=== PATIENT | male | born 1950 | race Caucasian/White ===

== ENCOUNTER 2020-08-31 11:54 | Observation (INO) | payer MEDICARE, SELFPAY ==
[2020-08-31] VITALS (18 sets, daily range): BP systolic 152–224; BP diastolic 71–118; PULSE 44–68; RESP 12–22; TEMP 35.8–36.5; O2SAT 95–100; BMI 27.5; BMI 26.6; BMI 26.7
[2020-08-31 12:05] LABS: Bedside Glucose 113 mg/dL (70-110)
--- NOTE | 2020-08-31 12:05 | RAD_ITS ---
STUDY: X-RAY CHEST REASON FOR EXAM: Male, 69 years old. NEURO DEFICIT, STROKE?, EPISODE OF SLURRED SPEECH AT 1130A TODAY TECHNIQUE: Single AP portable view of the chest. COMPARISON: None. FINDINGS: EKG electrodes are seen. The lungs are clear and expanded. There is no demonstrated pleural abnormality. Normal size heart. Normal mediastinum and cayetano. Normal visualized pulmonary arteries. There is atherosclerotic tortuosity of the aortic arch and descending thoracic aorta. There are degenerative changes of the visualized thoracic spine. Normal visualized ribs, clavicles, and shoulders. There is no demonstrated abnormality of the visualized soft tissue structures of the upper abdomen. RAD/Chest 1 View IMPRESSION: No acute abnormality is seen. Electronically Signed: Mikey Nova, at 13:07 EST , Service support ,
--- NOTE | 2020-08-31 12:05 | CT_ITS ---
STUDY: CT HEAD STROKE PROTOCOL W/O CONTRAST INJECTION REASON FOR EXAM: Male, 69 years old. SUSPECTED STROKE, SUDDEN ONSET OF SLURRED SPEECH, HERRERA, and quot;SEEING STARS and quot; RADIATION DOSAGE (If Supplied By Facility): CTDIvol = ( 44.99 ) mGy, DLP = ( 796.11 ) mGycm TECHNIQUE: Transaxial CT imaging of the brain was performed without administration of intravenous contrast material. Individualized dose optimization techniques were used for this CT. COMPARISON: No relevant priors. FINDINGS: Normal soft tissue structures. Normal calvarium. There is mild cerebral atrophy with widening of the extra-axial spaces and ventricular dilatation. There are areas of decreased attenuation within the white matter tracts of the supratentorial brain, consistent with microvascular disease changes. Normal basal ganglia and thalami. Normal brainstem. Normal cerebellum. There is no intracranial hemorrhage. There are no findings of an acute ischemic infarction. Atherosclerotic plaque formation of the cavernous portions of the internal carotid arteries bilaterally. Normal visualized paranasal sinuses. CT/STROKE Brain/Head without Cont IMPRESSION: Chronic involutional changes of the brain. N.B. : The above information has been verbally conveyed by Mikey Nova to Rao Brito on 08/31/2020 12:44:58 (ET). Electronically Signed: Mikey Nova, at 12:46 EST , Service support ,
--- NOTE | 2020-08-31 12:05 | EKG12_ITS ---
Test Reason : STROKE Blood Pressure : / mmHG Vent. Rate : 057 BPM Atrial Rate : 057 BPM P-R Int : 122 ms QRS Dur : 114 ms QT Int : 432 ms P-R-T Axes : 000 -56 025 degrees QTc Int : 420 ms Sinus bradycardia Left axis deviation Abnormal ECG Confirmed by RESHMA GUTIERREZ, STEFAN ([id number]), deputy editor in chief GALDINO CISNEROS ([id number]) on 09/02/2020 10:46:27 AM Referred By: DC Confirmed By:STEFAN JUSTICE MD
[2020-08-31 12:18] LABS: Absolute Lymphocyte Count 2.92 X10^3/uL (0.83-4.51); Absolute Neutrophil Count 3.4 X10^3/uL (2.0-7.7); Basophil# 0.08 X10^3/uL; Basophil% 1.1 % (0-1); Eosinophil# 0.23 X10^3/uL; Eosinophils% 3.2 % (0-5); Hematocrit 47.4 % (40-54); Lymphocyte # 2.92 X10^3/ul (4.0); Mean Corp Hgb Conc 35.9 g/dL (32-36); Mean Corpuscular Hgb 32.3 pg (27.0-32.0); Mean Corpuscular Volume 89.9 fL (80-94); Mean Platelet Vol. 9.5 fl (6.2-12.0); Monocyte# 0.51 X10^3/uL; Monocyte% 7.2 % (0-10); NRBC Flagged by Analyzer 0 % (0-5); Neutrophil # 3.36 X10^3/uL (2.7-7.7); Neutrophil % 47.1 % (47-70); Platelet Count 274 K/mm3 (150-450); RBC Distribution Width CV 13.2 % (11.6-14.6); RBC Distribution Width SD 42.5 fl (35.1-43.9); Red Blood Count 5.27 M/mm3 (4.6-6.2); White Blood Count 7.1 K/mm3 (4.4-11.0)
[2020-08-31 12:34] LABS: Partial Thromboplast Time 26.2 Seconds (24.1-36.2)
--- NOTE | 2020-08-31 12:34 | ED.RN ---
pt's symptoms had resolved prior to arrival to ED.
[2020-08-31 12:37] LABS: Anion Gap 3 (5-15); BUN 13 mg/dL (7-18); BUN/Creat Ratio 11.4 RATIO (10-20); Calcium,Total 9.6 mg/dL (8.5-10.1); Chloride 108 mmol/L (98-107); Creatinine, Serum 1.14 mg/dL (0.70-1.30); EST Glomerular Filtration Rate 67 mL/min (>60); Est Glom Filt Rate - Afr Amer 81 mL/min (>60); Glucose 102 mg/dL (74-106); Potassium 3.6 mmol/L (3.5-5.1); Sodium Level 139 mmol/L (136-145)
--- NOTE | 2020-08-31 13:57 | ED.VISSUMM ---
- ER Visit Summary Date of Service: 08/31/20 Chief Complaint: Slurred speech History of Present Illness: The patient is a 69 M who was at lunch today at around 1135. He had the sudden onset of slurred speech. His words were coming out abnormally. This was witnessed. It lasted about half an hour, and seems to have improved. He did not have any other symptoms like weakness, vision changes, or facial droop. He never had anything like this in the past. He says he has a history of borderline hypertension. Physical Examination: Blood pressure 224/115. Otherwise vitals normal. NIH stroke scale is 0. Heart is regular. Lungs are clear. Skin appears normal. Test Results: EKG shows sinus rhythm at a rate of 57. CBC, BMP, coags, troponin unremarkable. Chest x-ray and CT brain showed chronic changes, nothing acute. X-ray was reviewed by myself as well as the radiologist. Emergency Department Course and Treatment: Patient was seen shortly after arrival. Stroke team was not called as his symptoms have completely resolved. His NIH stroke scale is 0. His blood pressure is 224/115, and so he is not a candidate for TPA emergently. Patient had a TIA evaluation. Work-up was unremarkable. Blood pressure on reevaluation is 188/104. He will be treated with labetalol. Will contact the hospitalist for inpatient evaluation for TIA and blood pressure monitoring and treatment as needed. Treatment Plan: As above Disposition: Admission Impression: TIA, hypertension This note was generated with [employer] dictation software. It may contain incorrect words, spelling, and punctuation that were not noted in review of the chart prior to signing ED Disposition - Plan for ED Patient: Referrals: Pancho Davison MD [Primary Care Provider] -
[2020-08-31] MEDS: Labetalol (Compound) 20 MG/4 ML SYRINGE 5 MG IV (14:40)
--- NOTE | 2020-08-31 15:27 | PCM.HP.STD ---
Problem List (1) Slurred speech Status: Acute History of Present Illness Date of Admission: 08/31/20 Chief Complaint: slurred speech The patient is a 69 year old M was having lunch with his friends where he started immediately having slurred speech. Patient could understand what people are saying to him but he was having trouble speaking. Symptoms lasted a short period of time from minutes to maybe an hour and then resolve spontaneously. Patient denies ever having had symptoms such as this before. Friends are concerned and patient was brought to the hospital. In the emergency room, patient's work-up was unremarkable and has had no further neurologic deficits. While he was in the emergency room, his blood pressure was noted to be in the 190s. Patient has stated that he has been told he has had borderline hypertension but is not on treatment for it. [] Past Medical History Medical History: Medical History (Last Updated 08/31/20 @ 15:[address] Alexei Juarez, DO) HTN (hypertension) I10 Allergies No Known Allergies Allergy (Verified 08/31/20 11:54) Home Medications: Ambulatory Orders Medication Instructions Recorded No Known/Unobtainable [No Known 02/26/14 Home Medications] Smoking Status: Never smoker Tobacco Use: Non-smoker Alcohol: Rare Drugs: None - *Family History Maternal History Items: Stroke Review of Systems Constitutional: Denies: Chills, Fever, Weight Change Eyes: Reports: - - Saw some spots in his visual field today. Patient has previously seen starch mangle tender in was told that when he had this before that it was not anything of concern.. Denies: Blurred vision, Double vision HEENT: Reports: Difficulty Hearing, Difficulty Swallowing Cardiovascular: Reports: Edema, Light Headedness Respiratory: Reports: Cough, Hemoptysis, Pleuritic Pain, Shortness of Breath Gastrointestinal: Reports: Abdominal Pain, Constipation, Diarrhea Genitourinary: Reports: Dysuria, Frequency, Hematuria Musculoskeletal: Reports: Arm Pain, Back Pain, Foot Pain, Hand Pain Skin: Reports: Dryness, Jaundice Neurological: Reports: Change in Speech. Denies: Balance problems, Blurred vision, Double vision Psychiatric: Denies: Anxiety, Depression Comment: All review of systems were negative except as mentioned above in the history of present illness and the other review of systems. VTE Information - Inpt Only VTE Present on Admission: No VTE Mechan Device Prophylaxis: None VTE Pharm Prophylaxis ordered?: No Reason prophylaxis not ordered:: Treatment Not Indicated Patient Problems: Active and Suspected Problems (Last Updated 08/31/20 @ 15:[address] Alexei Juarez, DO) Slurred speech (Acute) - Physical Exam Vitals/I&O's: Vital Signs Temp Pulse Resp BP Pulse Ox 35.8 C L 54 L 17 182/111 H 98 08/31/20 14:30 08/31/20 14:30 08/31/20 14:30 08/31/20 14:30 08/31/20 14:30 Oxygen Delivery Method Room Air Weight: 89.6 kg Body Mass Index (BMI) 27.5 Finger Stick Blood Glucose 113 General: Alert, Cooperative, No apparent distress HEENT: Atraumatic, PERRLA, Normocephalic Oral: Moist Mucosa, No Gingival or Mucosal Lesions/ Ulcerations Neck: No Nodes, Thyroid Normal Size and Texture Lungs: Clear to auscultation, Normal air movement, No rhonchi, No wheeze, No rales Cardiovascular: Regular rate, Regular Rhythm, Normal S1, Normal S2, No murmurs Abdomen: Bowel Sounds Present, Soft, Non Tender, Non-Distended, No Hepato-splenomegaly Extremities: No edema, No Calf Tenderness Skin: No rashes, No breakdown Musculoskeletal: No Tenderness to Palpation of Joints or Extremities, No Muscle Wasting Neurological: Cranial nerves II-XII grossly intact, Deep Tendon Reflexes 2+/4 and Symmetrical, Neuro grossly intact, Motor Exam 5/5 strength throughout Psych/Mental Status: Normal Affect, Appropriate Laboratory Results 08/31/20 12:01: POC Glucose 113 H 08/31/20 12:03: WBC 7.1, RBC 5.27, Hgb 17.0 H, Hct 47.4, MCV 89.9, MCH 32.3 H, MCHC 35.9, RDW Std Deviation 42.5, RDW Coeff of Gio 13.2, Plt Count 274, MPV 9.5, Immature Gran % (Auto) 0.400, Neut % (Auto) 47.1, Lymph % (Auto) 41.0, [place] % (Auto) 7.2, Eos % (Auto) 3.2, Baso % (Auto) 1.1 H, Absolute Neuts (auto) 3.4, Absolute Lymphs (auto) 2.92, Nucleated RBC % 0 12/21/20 12:03: PT 13.0, INR 1.0, APTT 26.2 08/31/20 12:03: Sodium 139, Potassium 3.6, Chloride 108 H, Carbon Dioxide 28.0, Anion Gap 3 L, BUN 13, Creatinine 1.14, Estim Creat Clear Calc 63.30, Est GFR (MDRD) Af Amer 81, Est GFR (MDRD) Non-Af 67, BUN/Creatinine Ratio 11.4, Glucose 102, Calcium 9.6, Troponin I < 0.015 Clinical Impression(s) from Imaging Studies Brain CT 08/31/20 12:05 IMPRESSION: Chronic involutional changes of the brain. N.B. : The above information has been verbally conveyed by Mikey Nova to Rao Brito on 08/31/2020 12:44:58 (ET). Electronically Signed: Mikey Nova, at 12:46 EST , Service support , ADDENDUM: 08/31/20 1253 IMPRESSION: Chronic involutional changes of the brain. N.B. : The above information has been verbally conveyed by Mikey Nova to Rao Brito on 08/31/2020 12:44:58 (ET). Electronically Signed: Mikey Nova, at 12:46 EST , Service support , Chest X-Ray 08/31/20 12:05 IMPRESSION: No acute abnormality is seen. Electronically Signed: Mikey Nova, at 13:07 EST , Service support , EKG reviewed and showed sinus bradycardia but no acute changes. Assessment/Plan All Active Problems (Last Updated 08/31/20 @ 15:[address] Alexei Juarez, DO) Slurred speech (Acute) 1. Suspected TIA: Had a transient expressive aphasia with slurred speech. Plan is to do stroke work-up with an MRI of the brain, MRA of the head neck, 2D echocardiogram check a fasting lipid profile Started on aspirin 2. Hypertensive urgency Patient has a known history of borderline hypertension. Blood pressures in the 190s systolic. This may be related with TIA. Would not aggressively treat at this time given the likelihood of acute TIA or stroke. 3. VTE prophylaxis: Not indicated as patient is observation status at this time. COVID-19 screening: Patient was eating with his friends today. Asked patient how frequently he does this and he said he does so quite often. Though the patient has no symptoms of COVID-19, he is certainly high risk given his encounters. Will check a rapid antigen and based on the results he will be placed either in the general medical population if negative or Covid unit if positive. And if positive would confirm that with a PCR. OBSV E&M: [id number] Initial observation care L3
--- NOTE | 2020-08-31 17:01 | MRI_ITS ---
HISTORY: sudden onset slurred speech today TECHNIQUE: Carotid MR angiogram was performed without and with contrast. 3D reconstructions were reviewed. NASCET criteria using the distal internal carotid arteries for comparison were used for evaluation of stenoses. IV Contrast dosage and agent: 15 ml Dotarem COMPARISON: None FINDINGS: Number of images including paperwork: 316 AORTIC ARCH AND BRANCHES: No significant stenosis of the visualized portions. RIGHT CAROTID ARTERIES: No occlusion, significant stenosis or dissection. Vascular tortuosity. LEFT CAROTID ARTERIES: No occlusion, significant stenosis or dissection. Vascular tortuosity. RIGHT VERTEBRAL ARTERY: No occlusion, significant stenosis or dissection. LEFT VERTEBRAL ARTERY: Origin not well demonstrated due to motion artifact. No occlusion, significant stenosis or dissection. INCIDENTAL FINDINGS: None. MRI/MRA Neck WITH and W/O Contrast IMPRESSION: No significant stenosis of either internal carotid artery. at 2205 Reported and signed by: Nettie Daniels MD Electronically Signed: Nettie Daniels MD at 22:05 EST Tel , Service support ,
--- NOTE | 2020-08-31 17:01 | MRI_ITS ---
STUDY: MRI BRAIN WITHOUT CONTRAST REASON FOR EXAM: Male, 69 years old. sudden onset slurred speech today TECHNIQUE: Standardized multiplanar fat and water weighted pulse sequences were obtained. COMPARISON: None. FINDINGS: There is mild cerebral atrophy with widening of the extra-axial spaces and ventricular dilatation. There are a limited number of small white matter hyperintensities, distributed throughout the deep white matter tracts of the cerebral hemispheres, consistent with mild chronic white matter ischemic changes. Normal bilateral basal ganglia. Normal thalami. There is no extra-axial fluid accumulation. Normal flow voids within the major intracranial circulation suggesting patency by spin echo criteria. Normal sella turcica, pituitary gland, infundibular stalk, optic chiasm and hypothalamus. Normal tectal plate and pineal gland. Normal midbrain, gilberto and medulla. Normal cerebellum. Normal basal cisterns. Normal bilateral temporal bones. Normal bilateral internal auditory canals. No demonstrated orbital abnormality, within the constraints of a routine brain study. Normal visualized paranasal sinuses. Normal calvarium and skull base. Normal visualized soft tissue structures. Normal visualized upper cervical spine. MRI/Brain without Contrast IMPRESSION: Involutional changes of the brain, as described above. Electronically Signed: Adan Mendoza MD at 0:04 EST , Service support ,
--- NOTE | 2020-08-31 17:01 | MRI_ITS ---
STUDY: MRA OF THE HEAD WITHOUT CONTRAST REASON FOR EXAM: Male, 69 years old. tia,sudden onset slurred speech x 15min TECHNIQUE: 3-D [id number] (TOF) imaging was performed with MIPs. The study was performed unenhanced. COMPARISON: CT brain from today FINDINGS: Normal bilateral petrous carotid arteries. Normal right cavernous carotid artery with a normal supraclinoid bifurcation. Normal left cavernous carotid artery with a normal supraclinoid bifurcation. Normal right A1 segments of the anterior cerebral artery. Normal left A1 segments of the anterior cerebral artery. Normal intact anterior communicating artery (ACOM). Normal bilateral A2 segments of the anterior cerebral arteries. Normal right M1 and M2 segments of the middle cerebral arteries, with a normal M1 bifurcation. Normal left M1 and M2 segments of the middle cerebral arteries, with a normal M1 bifurcation. Normal right posterior communicating artery (PCOM). Normal left posterior communicating artery (PCOM). Normal bilateral vertebral arteries. Normal basilar artery with a normal basilar bifurcation. The visualized bilateral superior cerebellar (SCA) arteries are normal. Normal bilateral P1, P2 and visualized P3 segments of the posterior cerebral arteries. There is no demonstrated aneurysm of the [place] of [place]. There is no major vessel occlusion or hemodynamically significant stenosis. There is no demonstrated abnormality of the visualized brain. MRI/MRA Head ONLY without Contrast IMPRESSION: Normal MRA of the head Electronically Signed: Adan Mendoza MD at 0:00 EST , Service support ,
--- NOTE | 2020-08-31 17:01 | ECHOD_ITS ---
Reason For Study: TIA Procedure This was a 2D Doppler, Color Flow transthoracic echocardiogram. The exam was of adequate technical quality. Exam performed portable in patient room. Left Ventricle Normal LV size. Apical false tendon noted. Left ventricular systolic function is normal. The estimated ejection fraction is 65 %. No evidence for diastolic dysfunction. No regional wall motion abnormalities noted. Right Ventricle Normal RV size. Normal systolic function. Atria Normal left atrium. Normal right atrium. No doppler evidence for ASD. Bubble contrast study negative for right to left interatrial shunt. Mitral Valve There is no mitral annular calcification. Normal mitral valve. Trivial mitral valve insufficiency. Tricuspid Valve Normal tricuspid valve. Trivial tricuspid valve insufficiency. Aortic Valve Trisinus/trileaflet aortic valve. Mild focal aortic valve calcification. Pulmonic Valve The pulmonic valve is not well visualized. Great Vessels Normal sized aortic root. Pericardium/Pleural No pericardial effusion. Medication Performed a rapid injection of agitated mix of 9 cc saline and 1cc air to assess for atrial septal defect. MMode/2D Measurements & Calculations LVIDd: 5.2 cm IVSd: 1.1 cm Ao root diam: 3.6 cm LVIDs: 3.7 cm LVPWd: 1.1 cm RVDd: 3.7 cm FS: 29.6 % LAV(MOD-bp): 55.0 ml LVAd ap4: 34.3 cm2 SV(MOD-sp4): 70.4 ml LAV(MOD-bp) Indexed: 26.6 ml/m2 EDV(MOD-sp4): 122.4 ml LAV(MOD-sp2): 56.4 ml EDV(sp4-el): 127.1 ml LAV(MOD-sp4): 44.4 ml LVAs ap4: 20.5 cm2 ESV(MOD-sp4): 52.0 ml ESV(sp4-el): 52.2 ml EF(MOD-sp4): 57.5 % EF(sp4-el): 59.0 % SV(sp4-el): 75.0 ml LA A4 area: 16.0 cm2 LA dimension(2D): 4.1 cm RA A4 area: 15.7 cm2 Time Measurements MV dec time: 0.24 sec Doppler Measurements & Calculations MV E max hector: 89.1 cm/sec Lat Peak E' Hector: 8.6 cm/sec Med Peak E' Hector: 7.4 cm/sec MV A max hector: 107.9 cm/sec E/E' lat: 10.4 E/E' med: 12.1 MV E/A: 0.83 Ao V2 max: 152.9 cm/sec LV V1 max: 131.1 cm/sec Ao max P.3 mmHg LV V1 max P.9 mmHg Interpretation Summary Left ventricular systolic function is normal. The estimated ejection fraction is 65 %. Apical false tendon noted. Trivial mitral valve insufficiency. Trivial tricuspid valve insufficiency. Mild focal aortic valve calcification. No evidence for diastolic dysfunction. Bubble contrast study negative for right to left interatrial shunt. Ordering Physician: Alexei Juarez Referring Physician: ENID GEORGE Performed By: America Olivo, GERARDO, RVT
[2020-09-01] VITALS (10 sets, daily range): BP systolic 150–156; BP diastolic 76–97; PULSE 43–57; RESP 14–16; TEMP 36.2–36.6; O2SAT 97–100; BMI 26.6
[2020-09-01 06:35] LABS: Cholesterol 203 mg/dL (200); High Density Lipoprotein 50 mg/dL; Triglycerides 62 mg/dL; Very Low Density Lipoprotein 12 mg/dL (5-40)
[2020-09-01] MEDS: Aspirin 81 MG TAB.CHEW PO (08:21)
[2020-09-01] MEDS: amLODIPine 10 MG Tablet PO (15:36)
--- NOTE | 2020-09-01 16:04 | DCINST_ITS ---
- Discharge Diagnoses Current Active Problems: Current Active and Chronic Problems (Last Updated 08/31/20 @ 15:[address] Alexei Juarez, DO) Slurred speech (Acute) You will use the following diet at home:: Cardiac Your food should be the consistency of: Regular Your liquids should be the consistency of: Regular/Thin Discharge Activity: Return to Normal Activity, - - ok to cycle Allergies/Adverse Reactions: Allergies No Known Allergies Allergy (Verified 08/31/20 11:54) Medications to take at Discharge Amlodipine [Norvasc] 10 mg PO DAILY #30 tab 09/01/20 Aspirin [Aspirin, Baby] 81 mg PO DAILY@0800 #30 tab.chew 09/01/20 Pravastatin [Pravachol] 40 mg PO QHS #30 tab 09/01/20 The following prescriptions were given: Aspirin [Aspirin, Baby] 81 mg PO DAILY@0800 #30 tab.chew Transmission Status: Pending to [facility] Amlodipine [Norvasc] 10 mg PO DAILY #30 tab Transmission Status: Pending to [facility] Pravastatin [Pravachol] 40 mg PO QHS #30 tab Transmission Status: Pending to [facility] Primary Care Physician: Pancho Davison MD [Primary Care Provider] - Please follow up with your Primary Care Physician in: 1-2 weeks for hospital follow up Test Results: Test results from this visit will be discussed in further detail at your follow- up appointment, if applicable.
--- NOTE | 2020-09-01 17:47 | DS.PCM_ITS ---
Discharge Date and Diagnosis - Problem List Patient Problems: Active and Suspected Problems (Last Updated 08/31/20 @ 15:[address] Alexei Juarez DO) Slurred speech (Acute) Date of Admission: 08/31/20 Date of Discharge: 09/01/20 - Primary Discharge Diagnosis Acute Problems: Active Problems (Last Updated 08/31/20 @ 15:[address] Alexei Juarez DO) Slurred speech (Acute) Hospital Course and Treatment Imaging Results: STUDY: MRI BRAIN WITHOUT CONTRAST REASON FOR EXAM: Male, 69 years old. sudden onset slurred speech today TECHNIQUE: Standardized multiplanar fat and water weighted pulse sequences were obtained. COMPARISON: None. FINDINGS: There is mild cerebral atrophy with widening of the extra-axial spaces and ventricular dilatation. There are a limited number of small white matter hyperintensities, distributed throughout the deep white matter tracts of the cerebral hemispheres, consistent with mild chronic white matter ischemic changes. Normal bilateral basal ganglia. Normal thalami. There is no extra-axial fluid accumulation. Normal flow voids within the major intracranial circulation suggesting patency by spin echo criteria. Normal sella turcica, pituitary gland, infundibular stalk, optic chiasm and hypothalamus. Normal tectal plate and pineal gland. Normal midbrain, gilberto and medulla. Normal cerebellum. Normal basal cisterns. Normal bilateral temporal bones. Normal bilateral internal auditory canals. No demonstrated orbital abnormality, within the constraints of a routine brain study. Normal visualized paranasal sinuses. Normal calvarium and skull base. Normal visualized soft tissue structures. Normal visualized upper cervical spine. MRI/Brain without Contrast IMPRESSION: Involutional changes of the brain, as described above. STUDY: MRA OF THE HEAD WITHOUT CONTRAST REASON FOR EXAM: Male, 69 years old. tia,sudden onset slurred speech x 15min TECHNIQUE: 3-D [id number] (TOF) imaging was performed with MIPs. The study was performed unenhanced. COMPARISON: CT brain from today FINDINGS: Normal bilateral petrous carotid arteries. Normal right cavernous carotid artery with a normal supraclinoid bifurcation. Normal left cavernous carotid artery with a normal supraclinoid bifurcation. Normal right A1 segments of the anterior cerebral artery. Normal left A1 segments of the anterior cerebral artery. Normal intact anterior communicating artery (ACOM). Normal bilateral A2 segments of the anterior cerebral arteries. Normal right M1 and M2 segments of the middle cerebral arteries, with a normal M1 bifurcation. Normal left M1 and M2 segments of the middle cerebral arteries, with a normal M1 bifurcation. Normal right posterior communicating artery (PCOM). Normal left posterior communicating artery (PCOM). Normal bilateral vertebral arteries. Normal basilar artery with a normal basilar bifurcation. The visualized bilateral superior cerebellar (SCA) arteries are normal. Normal bilateral P1, P2 and visualized P3 segments of the posterior cerebral arteries. There is no demonstrated aneurysm of the [place]. There is no major vessel occlusion or hemodynamically significant stenosis. There is no demonstrated abnormality of the visualized brain. MRI/MRA Head ONLY without Contrast IMPRESSION: Normal MRA of the head HISTORY: sudden onset slurred speech today TECHNIQUE: Carotid MR angiogram was performed without and with contrast. 3D reconstructions were reviewed. NASCET criteria using the distal internal carotid arteries for comparison were used for evaluation of stenoses. IV Contrast dosage and agent: 15 ml Dotarem COMPARISON: None FINDINGS: Number of images including paperwork: [id number] AORTIC ARCH AND BRANCHES: No significant stenosis of the visualized portions. RIGHT CAROTID ARTERIES: No occlusion, significant stenosis or dissection. Vascular tortuosity. LEFT CAROTID ARTERIES: No occlusion, significant stenosis or dissection. Vascular tortuosity. RIGHT VERTEBRAL ARTERY: No occlusion, significant stenosis or dissection. LEFT VERTEBRAL ARTERY: Origin not well demonstrated due to motion artifact. No occlusion, significant stenosis or dissection. INCIDENTAL FINDINGS: None. MRI/MRA Neck WITH and W/O Contrast IMPRESSION: No significant stenosis of either internal carotid artery. ECHO-WNL NONE Operations: None Procedures: 2-D Echocardiogram, - - MRI Summary of Care Provided: Mr Simeon is a 69 year old M who was having lunch with his friends when he started immediately having slurred speech. The pt could understand what people are saying to him but he was having trouble speaking. The symptoms lasted a short period of time ,about 15 min, and then resolve spontaneously and have not reoccurred since. He denies ever having had symptoms such as this before. His friends were concerned and brought him to the hospital. In the emergency room, patient's work-up was unremarkable and has had no further neurologic deficits. While he was in the emergency room, his blood pressure was noted to be in the 190s. Patient has stated that he has been told he has had borderline hypertension but is not on treatment for it. An MRI and ECHO were done and both were unremarkable. His pressures remained elevated in the 150's systolic and he was started on Novasc 10 mg at d/c as well as pravachol 40 mg qhs and asa 81 mg. His Total Chol was 203 and his LDL was 141, HDL 50. TIA was suspected and he was instructed to watch his diet and follow a low salt/low fat diet and watch is caffeine intake. He is to continue his exercise regimen and f/u with his PCP in 1-2 weeks for a BP check. He was d/c in stable condition. Scripts were filled for a 1 month supply. Discharge Dx TIA HTN-new HPL-new Discharge Time > 35min Patient Problems: Active and Suspected Problems (Last Updated 08/31/20 @ 15:[address] Alexei Juarez, DO) Slurred speech (Acute) - Physical Exam Vitals/I&O's: Vital Signs Temp Pulse Resp BP Pulse Ox 97.9 F 57 L 15 156/97 H 97 09/01/20 13:50 09/01/20 16:42 09/01/20 13:50 09/01/20 16:42 09/01/20 13:50 Oxygen Delivery Method Room Air Weight: 86.818 kg Body Mass Index (BMI) 26.6 Finger Stick Blood Glucose 113 Intake and Output for Last 24 Hours 08/30/20 08/31/20 09/01/20 23:59 23:59 23:59 Intake Total 550 / 550 Balance 550 / 550 General: Alert, Oriented x3, Cooperative, No apparent distress, Well developed, Well nourished, - - older WM sitting up in a chair fully dressed and at his bedside HEENT: Atraumatic, PERRLA, EOMI, Normocephalic, Sluggish Pupils Oral: Moist Mucosa, No Gingival or Mucosal Lesions/ Ulcerations Neck: Supple, No JVD, Negative Carotid Bruits, Negative Hepatojugular Reflux Lungs: Clear to auscultation, Normal air movement, No rhonchi, No wheeze, No rales Cardiovascular: Regular rate, Regular Rhythm, Normal S1, Normal S2, No murmurs, No Ectopic Activity, No rub noted, No Gallop Abdomen: Bowel Sounds Present, Soft, Non Tender, Non-Distended Extremities: No clubbing, No cyanosis, No edema, Capillary Refill Less than 3 Seconds, Peripheral Pulses Normal Skin: No rashes, No breakdown Musculoskeletal: No Tenderness to Palpation of Joints or Extremities, No Muscle Wasting, Arthritic Changes Neurological: Cranial nerves II-XII grossly intact, Neuro grossly intact, Motor Exam 5/5 strength throughout, Muscle tone normal, Sensory exam intact to light touch and pain, Coordination normal, - - Speech WNL Microbiology Past 72 Hours 08/31/20 15:30 Mucosa - Nose SARS-CoV-2 Antigen (Rapid) - Final Laboratory Results 09/01/20 05:25: Triglycerides 62, Cholesterol 203 H, LDL Cholesterol 141 H, VLDL Cholesterol 12, HDL Cholesterol 50 Discharge Activity: Return to Normal Activity, - - ok to cycle Home Medications: Medications to take at Discharge Amlodipine [Norvasc] 10 mg PO DAILY #30 tab 09/01/20 Aspirin [Aspirin, Baby] 81 mg PO DAILY@0800 #30 tab.chew 09/01/20 Pravastatin [Pravachol] 40 mg PO QHS #30 tab 09/01/20 Following Prescriptions Were Given to Patient: Aspirin [Aspirin, Baby] 81 mg PO DAILY@0800 #30 tab.chew Transmission Status: Received by [facility] Amlodipine [Norvasc] 10 mg PO DAILY #30 tab Transmission Status: Received by [facility] Pravastatin [Pravachol] 40 mg PO QHS #30 tab Transmission Status: Received by [facility] Primary Care Physician: Pancho Davison MD [Primary Care Provider] - Please follow up with your Primary Care Physician in: 1-2 weeks for hospital follow up Medical Necessity - Tobacco Use Smoking Status: Never smoker Tobacco Use: Non-smoker Meaningful Use Info Meaningful Use Diagnoses (Choose all that apply): None applicable Inpatient E&M: 01870 Disch Hosp
== END 2020-09-01 16:04 | disposition home or self-care (01) ==
LOC: ED 13:59 → PCU 15:33
PROVIDERS: Emergency Provider Emergency Medicine; PCP Family Medicine; Visit Provider Internal Medicine
DX: R47.81 Slurred speech (principal); I10 Essential (primary) hypertension; I16.0 Hypertensive urgency; R00.1 Bradycardia, unspecified; I08.3 Combined rheumatic disorders of mitral, aortic and tricuspid valves; R47.01 Aphasia; R29.700 NIHSS score 0
CPT/HCPCS: 70450; 70544; 70549; 70551; 71045; 80048; 80061; 82962; 84484; 85025; 85610; 85730; 87426; 93005; 93306; 96374; 99218; 99285; A9575; A4216; G0378

== ENCOUNTER → 2023-10-12 | Outpatient (CLI) | payer MEDICARE, SELFPAY ==
--- NOTE | 2023-10-12 16:17 | STRESSREP ---
Stress Test Report Date: 10/12/2023 Procedure: Exercise tolerance test Indications: Bradycardia Consent: Per the patient Procedure: The patient exercised on a [place] protocol for 9 minutes achieving a peak heart rate of 140 bpm (97% predicted maximal heart rate) with a peak blood pressure 198/80 mmHg and a peak MET capacity of approximately 10.1 MET's. The baseline ECG demonstrated sinus bradycardia. The peak exercise ECG demonstrated sinus tachycardia with no ischemic changes. Isolated PVC at baseline. The functional capacity was considered adequate. The patient had no complaints of chest discomfort during exercise or recovery. The examination was discontinued secondary to target heart rate being achieved. Impression: 1. Technically adequate (percent predicted maximal heart rate greater than 85%) exercise tolerance test 2. Peak exercise ECG with no ischemic changes. Normal chronotropic response to exercise. 3. There were no cardiac dysrhythmias during exercise or recovery This note was generated with [employer] software. It may contain incorrect words, spelling, and punctuation that were not noted in checking the note before signing.
== END | disposition home or self-care (01) ==
PROVIDERS: PCP Family Medicine; Referring Provider Internal Medicine Cardiovascular Disease; Visit Provider Internal Medicine Cardiovascular Disease
DX: R94.31 Abnormal electrocardiogram [ECG] [EKG] (principal); R00.1 Bradycardia, unspecified
CPT/HCPCS: 93017

== ENCOUNTER → 2023-11-20 | Outpatient (CLI) | payer MEDICARE, SELFPAY ==
--- NOTE | 2023-11-20 07:44 | ECHOD_ITS ---
Reason For Study: HCAKA, A. fib Procedure This was a 2D Doppler, Color Flow transthoracic echocardiogram. Exam performed in department. Left Ventricle Normal LV size. Mild concentric left ventricular hypertrophy. The left ventricular ejection fraction is 60 %. Diastolic function is indeterminate. Right Ventricle Normal right ventricle. Atria The left and right atria are normal. Mitral Valve Trivial mitral valve insufficiency. Tricuspid Valve Normal tricuspid valve. Aortic Valve Mild diffuse aortic valve thickening. Trisinus/trileaflet aortic valve. Pulmonic Valve The pulmonic valve is not well visualized. Great Vessels Normal sized aortic root. Pericardium/Pleural No pericardial effusion. MMode/2D Measurements & Calculations LVIDd: 4.9 cm IVSd: 1.3 cm Ao root diam: 3.6 cm LVIDs: 2.6 cm LVPWd: 0.97 cm RVDd: 3.7 cm FS: 46.1 % LAV(MOD-bp): 61.3 ml LVAd ap4: 31.5 cm2 LVAd ap2: 29.7 cm2 LAV(MOD-bp) Indexed: 29.1 ml/m2 LVLd ap4: 8.2 cm LVLd ap2: 8.1 cm LAV(MOD-sp2): 58.0 ml EDV(MOD-sp4): 100.5 ml EDV(MOD-sp2): 91.6 ml LAV(MOD-sp4): 63.0 ml EDV(sp4-el): 102.4 ml EDV(sp2-el): 92.4 ml LVAs ap4: 16.7 cm2 LVAs ap2: 17.7 cm2 LVLs ap4: 7.1 cm LVLs ap2: 7.1 cm ESV(MOD-sp4): 34.4 ml ESV(MOD-sp2): 36.9 ml ESV(sp4-el): 33.3 ml ESV(sp2-el): 37.4 ml EF(MOD-sp4): 65.8 % EF(MOD-sp2): 59.8 % EF(sp4-el): 67.5 % SV(MOD-sp4): 66.1 ml SV(MOD-sp2): 54.7 ml SV(sp4-el): 69.1 ml LA dimension(2D): 4.1 cm LA A4 area: 20.0 cm2 RA A4 area: 17.7 cm2 TAPSE: 2.2 cm Time Measurements MV dec time: 0.23 sec Doppler Measurements & Calculations MV E max hectro: 75.3 cm/sec Lat Peak E' Hector: 8.2 cm/sec Med Peak E' Hector: 7.2 cm/sec MV A max hector: 82.2 cm/sec E/E' lat: 9.1 E/E' med: 10.5 MV E/A: 0.92 MV dec slope: 333.5 cm/sec2 Ao V2 max: 141.4 cm/sec LV V1 max: 100.2 cm/sec Ao max P.0 mmHg LV V1 max P.0 mmHg PA V2 max: 73.8 cm/sec ECHO/Echo Complete Interpretation Summary Mild concentric left ventricular hypertrophy. The left ventricular ejection fraction is 60 %. Diastolic function is indeterminate. Mild diffuse aortic valve thickening. Ordering Physician: Juanita Steward Referring Physician: Jb Hinds MD Performed By: Zara Sanz RDCS
--- OUTSIDE RECORDS SUMMARY | 2023-11-20 07:49 | XMS RPT_ITS | CCD ---
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 [facility]. Start: 01-09-2014 End: 01-10-2014 Patient encounter procedure Jb Hinds MD Work Phone: [facility]. Start: 10-03-2013 End: 10-03-2013 Patient encounter procedure Jb Hinds MD Work Phone: [facility]. Start: 10-03-2013 End: 10-03-2013 Routine general medical examination at a health care facility Jb Hinds MD Work Phone: [employer] Start: 08-22-2013 End: 08-22-2013 Orders Jb Hinds MD Work Phone: [facility]. Start: 05-22-2013 End: 05-22-2013 Patient encounter procedure Jb Hinds MD Work Phone: [facility]. Start: 10-03-2012 End: 10-05-2012 Patient encounter procedure Jb Hinds MD Work Phone: [facility]. Start: 10-03-2012 End: 10-05-2012 Routine general medical examination at a health care facility Jb Hinds MD Work Phone: [employer] Start: 10-02-2012 End: 10-02-2012 Historical Summary Jb Hinds MD Work Phone: [facility]. Start: 09-12-2012 End: 09-12-2012 Orders Jb Hinds MD Work Phone: [employer] Start: 03-25-2011 End: 03-25-2011 Patient encounter procedure Jb Hinds MD Work Phone: [employer]. Start: 10-15-2010 End: 10-15-2010 Patient encounter procedure Jb Hinds MD Work Phone: [facility] Start: 10-15-2010 End: 10-15-2010 Routine general medical examination at a health care facility Jb Hinds MD Work Phone: [employer] [facility] [employer]. Start: 10-12-2010 End: 10-14-2010 Orders Jb Hinds MD Work Phone: [employer]. 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 Routine general medi grace examination at a health care facility Bernadette Tian (scribe) [employer] [facility]. Procedures Date Procedure Procedure Detail Performing Clinician Start: 08-24-2023 End: 08-24-2023 Ecg routine ecg w/least 12 lds w/i&r Jb Hinds MD Work Phone: Start: 01-17-2023 End: 01-16-2023 Adv care pln tlkd & alt dcsn maker docd Jb Hinds MD Work Phone: Start: 01-17-2023 End: 01-16-2023 Depression screening Jb Hinds MD Work Phone: Start: 01-17-2023 End: 01-16-2023 Falls risk assessment documented Jb Hinds MD Work Phone: Start: 01-17-2023 End: 01-16-2023 PPPS, subseq visit Jb Hinds MD Work Phone: Start: 01-17-2023 End: 01-16-2023 Pt falls assess docd w/o fall/injury past year Jb Hinds MD Work Phone: Start: 01-17-2023 End: 01-16-2023 Scr dep neg, no plan reqd Jb Hinds MD Work Phone: Start: 01-10-2023 End: 01-10-2023 [facility] findings [facility] Date Care Activity Detail Author Start: 01-23-2024 Patient encounter procedure Medical; PHYSICAL - AWV [employer]. Start: 23-Jan-2024 9:50 MD Jb Hinds Appointment Request [facility] [employer] Start: 01-16-2024 Nursing evaluation of patient and report Medical; Nurse visit - fasting labs - SFB [employer] Start: 16-Jan-2024 9:00 NURSE, FLOAT Appointment Request [employer]. Start: 01-18-2018 End: 01-18-2018 Appointment Appointment [facility] Work Phone: Patient Education \[email or web address] PtEducati on\[email or web address] [facility] Work Phone: Immunizations Immunization Date Immunization Notes Care Provider Pacheco miller No information available. Brandy Dean RT [facility] Work Phone: Payers Date Payer Category Payer Unknown [id number] Unknown [id number] Unknown [employer] - PRIMETIME Social History Date Type Detail Facility Start: 01-18-2018 End: 01-18-2018 Assertion Unknown if ever smoked [facility] Work Phone: Exercise History: Exercise Histo ry: ; 4 x week. 45 - 60 minutes. cycling. [employer] Health POA Health POA [employer] [facility] Tobacco Use: Tobacco Use: ; N ever smoker. [employer] Male [facility] [employer] [facility] Work Phone: 45 - [address] [facility] [employer] [facility] Work Phone: 4 x week [employer] [facility] Work Phone: Never smoked tobacco [employer] Work Phone: cycling [employer]. 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 Advance Directives Living Will - Effective on . Expiration date unspecified. Patient chose Declined. Effective:14-Oct-2014 Healthcare Power of Energy Auditor - Effective on 10/14/2014. Expiration date unspecified Effective:14-Oct-2014 Living Will - Effective on . Expiration date unspecified. Patient chose Declined. Effective:14-Oct-2014 [employer] of [employer] Auditor - Effective on 10/14/2014. Expiration date unspecified Effective:14-Oct-2014 Living Will - Effective on . Expiration date unspecified. Patient chose Declined. Effective:14-Oct-2014 Healthcare [employer] of [employer] Auditor - Effective on 10/14/2014. Expiration date unspecified Effective:14-Oct-2014 Living Will - Effective on . Expiration date unspecified. Patient chose Declined. Effective:14-Oct-2014 [employer] of [employer] Auditor - Effective on 10/14/2014. Expiration date unspecified Effective:14-Oct-2014 Assessments There may be information available, but it has not been provided by the sender. Review of System There may be information available, but it has not been provided by the sender. Family History Cancer Status:Active Comments:Materna l Aunt. Cerebrovascular Accident Status:Active Comment s:Mother. Coronary Artery Disease Status:Active Comments :Father. Diabetes Mellitus Type II Status:Active Commen ts:Father. Brother. Hypothyroidism Status:Active Comments:Nahid hernandez Cancer Status:Active Comments:Materna l Aunt. Cerebrovascular Accident Status:Active Comment s:Mother. Coronary Artery Disease Status:Active Comments :Father. Diabetes Mellitus Type II Status:Active Commen ts:Father. Brother. Hypothyroidism Status:Active Comments:Nahid hernandez Cancer Status:Active Comments:Materna l Aunt. Cerebrovascular Accident Status:Active Comment s:Mother. Coronary Artery Disease Status:Active Comments :Father. Diabetes Mellitus Type II Status:Active Commen ts:Father. Brother. Hypothyroidism Status:Active Comments:Nahid hernandez Cancer Status:Active Comments:Materna l Aunt. Cerebrovascular Accident Status:Active Comment s:Mother. Coronary Artery Disease Status:Active Comments :Father. Diabetes Mellitus Type II Status:Active Commen ts:Father. Brother. Hypothyroidism Status:Active Comments:Nahid hernandez Summary Purpose Additional Source Comments (unrecognized sect ion and content) No Status Records FoundNo Status Records FoundNo Status Records FoundNo Status Records FoundNo Status Records Found INFORMATION SOURCE (unrecogn ized section and content) DATE CREATED AUTHOR AUTHOR'S ORGANIZ ATION 11/29/2020 [facility] DATE CREATED AUTHOR AUTHOR'S ORGANIZ ATION 02/13/2022 [facility] DATE CREATED AUTHOR AUTHOR'S ORGANIZ ATION 02/16/2022 [facility] [place] DATE CREATED AUTHOR AUTHOR'S ORGANIZ ATION 01/12/2023 [facility] FOR RECORDS PERTAINING TO PATIENTS WHO ARE OR HAVE BEEN ENROLLED IN A CHEMICAL DEPENDENCY/SUBSTANCEABUSE PROGRAM, SOME INFORMATION MAY BE OMITTED. This clinical summary was aggregated from multiple sources. Caution should be exercised in using it in the provision of clinical care. This summary normalizes information from multiple sources, and as a consequence, information in this document may materially change the coding, format and clinical context of patient data. In addition, data may be omitted in some cases. CLINICAL DECISIONS SHOULD BE BASED ON THE PRIMARY CLINICAL RECORDS. [employer] [facility]. provides no warranty or guarantee of the accuracy or completeness of information in this document.
== END | disposition home or self-care (01) ==
LOC: CVS 07:44
PROVIDERS: PCP Family Medicine; Referring Provider Nurse Practitioner Gerontology; Visit Provider Nurse Practitioner Gerontology
DX: I48.91 Unspecified atrial fibrillation (principal); I48.92 Unspecified atrial flutter; R00.0 Tachycardia, unspecified; G47.30 Sleep apnea, unspecified
CPT/HCPCS: 93225; 93226; 93306